=== PATIENT | female | born 1975 | race African-American/Black ===

== ENCOUNTER 2019-02-12 16:55 | Emergency (ER) | payer BC, OTHER ==
[~2019-02-12] VITALS: Ht 157.5 cm; Wt 81.7 kg
[2019-02-12] MEDS ORDERED: NORVASC 2.5 MG2.5 M1 PO (17:07)
[2019-02-12] MEDS ORDERED: TOPROL XL50 MG PO (17:10)
[2019-02-12] MEDS ORDERED: MICROZIDE12.5 MG PO (17:11)
[2019-02-12] MEDS ORDERED: IBUPROFEN 800800 M1 PO (18:20)
[2019-02-12] MEDS ORDERED: NORFLEX100 MG PO (18:20)
[2019-02-12 18:39] VITALS: BP 133/94
== END 2019-02-12 18:40 | disposition home or self-care (01) ==
LOC: ER 16:55
DX: S16.1XXA Strain of muscle, fascia and tendon at neck level, initial encounter (principal); S39.012A Strain of muscle, fascia and tendon of lower back, initial encounter; G44.209 Tension-type headache, unspecified, not intractable; I10 Essential (primary) hypertension; V89.2XXA Person injured in unspecified motor-vehicle accident, traffic, initial encounter; Y93.I9 Activity, other involving external motion; Y92.89 Other specified places as the place of occurrence of the external cause; Y99.8 Other external cause status